=== PATIENT | female | born 1960 | race Caucasian/White ===

== ENCOUNTER → 2020-04-24 06:05 | Outpatient (CLI) | payer BC, SELFPAY ==
--- NOTE | 2020-04-24 13:05 | BRONCHALL ---
Bronchoprovocation Challenge - Bronchoprovocation Challenge Bronchoprovocation Challenge: INTRODUCTION: The patient is a 59-year-old female that presents for a bronchoprovocation challenge secondary to a diagnosis of cough variant asthma. Respiratory therapy reports good patient effort and reproducible results. Contraindications for bronchoprovocation challenge were reviewed with the patient. INTERPRETATION: Initial spirometry did not show any large airways obstructive ventilatory defect and preserved airflows throughout. The patient was then given progressively increasing doses of methacholine in a standardized fashion. At no point during testing did the patient reach the benchmark criteria of a 20% drop in FEV1 to be considered a positive test. IMPRESSION: Negative methacholine challenge.
== END ==
DX: R05 Cough (principal); J45.991 Cough variant asthma
CPT/HCPCS: 94070; 95070; J3490; J7674

== ENCOUNTER → 2020-05-24 | Outpatient (CLI) | payer BC, SELFPAY | END | disposition home or self-care (01) | LOC: LABSPEC 12:06 | DX: Z11.59 Encounter for screening for other viral diseases (principal) | CPT/HCPCS: 87635; G2023; U0003 ==